=== PATIENT | male | born 1995 | race Caucasian/White ===

== ENCOUNTER 2020-05-31 13:29 | Emergency (ER) | payer SELFPAY ==
--- NOTE | 2020-05-31 14:28 | EDM.PDOC ---
ED HPI GENERAL MEDICAL PROBLEM - General Chief Complaint: Chest Pain Stated Complaint: CHEST PAIN Time Seen by Provider: 05/31/20 14:27 Source of Information: Reports: Patient History Limitations: Reports: No Limitations - History of Present Illness INITIAL COMMENTS - FREE TEXT/NARRATIVE: 24-year-old male presents to the ED for evaluation of left precordial chest discomfort that he experienced in the workplace about 1 and 1/2 weeks ago. It was so bad that he could not continue to work and was sent home. The following day it was gone and he returned to the workplace and he has had no chest pain since. He has had some intermittent epigastric lower retrosternal chest discomfort as well. But nothing on exertion and nothing sustained. His second complaint is pain when he looks down with a palpable nodule in his left upper angle of his mandible. This is persisted for the last 2 months. He does not remember having any facial hair infection or obvious insect bite or tick bite that would have precipitated reactive lymphadenitis. Has had no fever chills and otherwise is feeling well. Good appetite normal bowel function and has been working normally. Onset: Other (Has had a pain in the left neck at the angle of his mandible off and on for the last 2 months. He particular notices when he looks down for any length of time. Left precordial chest pain left epigastric lower retrosternal chest discomfort occurred only 1 day about a week and a half ago while he was in the workplace and has never returned.) Duration: Day(s):, Improving Location: Reports: Chest (Chest discomfort was left precordial and left epigastric retrosternal occurred about a week and a half ago in the workplace when he was working outside very hot. He suddenly became very lethargic and no longer able to lift push pull or work. He was sent home from the workplace because of this. After he got home the pain dissipated and he never sought medical care in this regard. It has not returned since that time. Gives a history of father developing cardiac problems at age 24 and a grandfather at age 50 having significant coronary artery disease. He does not remember if his grandfather was a smoker or not.), Other (Has a palpable nodular feeling in the left upper neck under the angle of his mandible on the left side. He reports it is unchanged in size over the last 2 months but bothers him at times when he looks downwards. Or fully flexes his neck.) Quality: Reports: Ache Severity: Moderate Improves with: Reports: Other (Pain is no longer present.) Worsens with: Reports: Movement (He can make the left side of his neck hurt a bit or become aware of discomfort at the angle of his mandible when he fully flexes his neck.) Context: Denies: Activity, Exercise, Lifting, Sick Contact, Trauma, Other Associated Symptoms: Reports: Chest Pain (Chest pain initially 1-1/2 weeks ago left precordium but lasted only a few hours.). Denies: No Other Symptoms, Confusion, Cough, cough w sputum, Diaphoresis, Fever/Chills, Headaches, Loss of Appetite, Malaise, Nausea/Vomiting, Seizure, Shortness of Breath, Syncope Treatments BARREL [place]: Reports: Other (see below) (None.) Left Chest Pain Score (Numeric/FACES): 1 - Related Data Allergies Allergy/AdvReac Type Severity Reaction Status Date / Time No Known Allergies Allergy Verified 05/31/20 13:52 Past Medical History - Past Health History Medical/Surgical History: Denies Medical/Surgical History Social & Family History - Tobacco Use Smoking Status *Q: Never Smoker Second Hand Smoke Exposure: No - Caffeine Use Caffeine Use: Reports: Energy Drinks - Recreational Drug Use Recreational Drug Use: No - Living Situation & Occupation Living situation: Reports: Single Occupation: Employed [employer] [facility] [employer] [facility] - Review of Systems Review Of Systems: See Below Constitutional: Denies: Fever, Chills, Malaise, Weakness, Fatigue, Decreased Appetite, Weight Loss HEENT: Reports: Other (Palpable nodule at the angle of his left mandible aggravated by flexing his neck fully on with chin on chest position.) Respiratory: Reports: No Symptoms. Denies: Shortness of Breath, Wheezing, Pleuritic Chest Pain, Cough, Sputum, Hemoptysis, Other Cardiovascular: Reports: Other (NC and left precordial chest pain 1-1/2 weeks ago. Occurred in the workplace when it was extremely hot and he admits that he was overexerting himself.). Denies: No Symptoms, Chest Pain, Blood Pressure Problem, Dyspnea on Exertion, Edema, Lightheadedness, Orthopnea, Palpitations, PND, Syncope Endocrine: Reports: No Symptoms GI/Abdominal: Reports: No Symptoms : Reports: No Symptoms Musculoskeletal: Reports: No Symptoms Skin: Reports: No Symptoms Neurological: Reports: No Symptoms Psychiatric: Reports: No Symptoms Hematologic/Lymphatic: Reports: No Symptoms Immunologic: Reports: No Symptoms ED EXAM, GENERAL - Physical Exam Exam: See Below Exam Limited By: No Limitations General Appearance: Alert, WD/WN, No Apparent Distress, Other (Temperature is 36.2. Heart rate is 59 and sinus respiratory is 18 with O2 sats of 98% room air BP 1 3281.) Eye Exam: Bilateral Eye: Normal Inspection, PERRL Throat/Mouth: Normal Inspection, Normal Lips, Normal Oropharynx Head: Atraumatic, Normocephalic. No: Facial Swelling, Facial Tenderness Neck: Normal Inspection, Supple, Non-Tender, Full Range of Motion, Lymphadenopathy (L) (Patient has a solitary lymph node at the angle of his mandible on the anterior aspect of the sternocleidal mastoid muscle that is less than a centimeter in size mobile and rubbery in consistency. It is perhaps very mildly tender suggesting mild reactive lymphadenopathy.). No: Lymphadenopathy (R) Respiratory/Chest: No Respiratory Distress, Lungs Clear, Normal Breath Sounds, No Accessory Muscle Use, Chest Non-Tender, Other Cardiovascular: Normal Peripheral Pulses (Chest wall pain on examination), Regular Rate, Rhythm, No Edema, No Gallop, No Murmur, No Rub Peripheral Pulses: 3+: Carotid (L), Carotid (R), Posterior Tibial (L), Posterior Tibial (R), Dorsalis Pedis (L), Dorsalis Pedis (R) GI/Abdominal: Normal Bowel Sounds, Soft, Non-Tender, No Organomegaly, No Abnormal Bruit, No Mass, Pelvis Stable Back Exam: Normal Inspection, Full Range of Motion, Other. No: CVA Tenderness (L), CVA Tenderness (R) Extremities: Normal Inspection (Rib head subluxation on exam), Normal Range of Motion, Non-Tender, No Pedal Edema Neurological: Alert, Oriented, CN II-XII Intact, Normal Cognition Psychiatric: Normal Affect, Normal Mood Skin Exam: Warm, Dry, Intact, Normal Color, No Rash EKG INTERPRETATION EKG Date: 05/31/20 Time: 14:50 Rhythm: NSR Rate (Beats/Min): 62 [place]: Normal P-Wave: Present QRS: Other (Early R wave transition normal for his age.) ST-T: Other (Diffuse early repolarization abnormality skewing the ST segment upwards in multiple leads and especially in leads II, III and aVF.) EKG Interpretation Comments: Abnormal ECG Course - Vital Signs Last Recorded V/S: Last Vital Signs Temp 36.2 C 05/31/20 13:49 Pulse 59 L 05/31/20 13:49 Resp 18 05/31/20 13:49 BP 132/81 05/31/20 13:49 Pulse Ox 98 05/31/20 13:49 - Radiology Interpretation Free Text/Narrative:: 24-year-old male presents to the ED for evaluation of a palpable nodule at the angle of his left mandible that is been present for about 2 months. Reports it bothers him the most when he is fully flexing his neck i.e. chin on chest position. Otherwise he is usually not aware of it. He states has not changed in size over the last 2 months. Cause is unclear but appears to be a reactive lymphadenopathy. On examination there is a palpable lymph node right at the angle of the mandible anterior to the sternocleidomastoid muscle with no other adenopathy present in the anterior posterior chain. There is no anterior or posterior ear lymphadenopathy and no occipital adenopathy. Second complaint was left precordial chest pain left epigastric chest discomfort that occurred in the workplace about 10 days ago that restricted his ability to continue work. He was forced to quit work and come home. He states it lasted for about 3 to 4 hours but then dissipated and has never come back. It was very hot outside at that time and he was exerting himself much more heavily than usual. To suggest possible dehydration muscle cramping pain as a cause. Examination of the chest wall reveals no abnormalities on today's exam. Lungs are clear heart is sinus and no abnormalities appreciated. Is unclear exactly why the youngster came to the ED at this point time several deep days or weeks after development of problems. Plan 1 view chest x-ray and ECG to be done. - Re-Assessments/Exams Free Text/Narrative Re-Assessment/Exam: 05/31/20 15:31 chest x-ray done portably is within normal limits. Patient is hyperinflated lung garrison due to his young age. Lungs parenchyma is clear. Cardiac silhouette is normal. ECG done reveals sinus rhythm at 63/min. There is early R wave transition which is normal for his age. There is diffuse early repolarization abnormality skewing the ST segments slightly upwards. This is particularly notable in leads II, III and aVF. He has no persistent chest pain to suggest pericarditis. Patient had chest pain that lasted only 6 hours 10 days ago and has no persistent chest pain dyspnea or pleuritic mid chest pain to suggest pericarditis. 05/31/20 15:33 patient will be discharged to home at this point time. Advised that at some point time in the next 3 to 4 months he should have a complete checkup with his primary care physician including serum cholesterol because of the strong family history of coronary disease in his family. He reports he used to smoke cigarettes but quit and now he has quit chewing tobacco as well. This will substantially reduce his risk. Departure - Departure Time of Disposition: 15:33 Disposition: Home, Self-Care 01 Reason for Transfer *Q: Other Condition: Fair (Noncardiac chest pain) Clinical Impression: Reactive cervical lymphadenopathy Instructions: Lymphadenopathy Referrals: PCP,None [Primary Care Provider] - Forms: ED Department Discharge Additional Instructions: Evaluation in the emergency room today in regards to 2 problems. You have appreciated an enlarged lymph node at the angle of your left mandible that is problematic sometimes when you fully flexure head with chin on chest position. Apparently it has been present for 2 months. On examination there is a lymph node at the angle of the mandible along the anterior chain of the s ternocleidomastoid muscle. It is smaller than a centimeter and is mobile and therefore is of no consequence. It likely represents a reaction to an infection either in your anthony or sometimes in the scalp area and remains swollen and tender for a lengthy period of time sometimes many months. The amezcua is that it does not change in shape or size over the ensuing weeks. It will eventually become nontender and likely settle down although it may stay slightly enlarged. Second problem was transient left precordial chest pain and epigastric discomfort while in the workplace about a week and a half ago that forced you to quit work due to severe weakness and inability to perform the activities of your job. This lasted approximately 6 hours or so and then got better. It is not returned. I suspect it was due to significant dehydration and perhaps overuse of the muscles in your chest and arms. ECG done today is within normal limits showing no abnormalities. Chest x-ray is also completely normal. At this time no restrictions continue all activities and diet as per your normal. Sepsis Event Note (ED) - Evaluation Sepsis Screening Result: No Definite Risk - Focused Exam Vital Signs: Vital Signs Temp Pulse Resp BP Pulse Ox 05/31/20 13:49 36.2 C 59 L 18 132/81 98
--- NOTE | 2020-05-31 15:51 | CR ---
Chest: Portable view of the chest was obtained. Comparison: No prior chest x-ray. Heart size and mediastinum are normal. Lungs are clear with no acute parenchymal change. Bony structures are unremarkable. Impression: 1. Nothing acute is seen on portable chest x-ray. Diagnostic code #1 Study was dictated in MDT
== END 2020-05-31 15:46 | disposition home or self-care (01) ==
LOC: JD.ED 13:29
DX: M54.12 Radiculopathy, cervical region (principal)
CPT/HCPCS: 71045; 71045-26; 93005; 99285-25

== ENCOUNTER 2023-06-04 19:02 | Emergency (ER) | payer SELFPAY ==
[2023-06-04] MEDS ORDERED: Pantoprazole 40 MG Tab.CR PO ONE (19:31)
[2023-06-04 19:39] LABS: BASOPHILS PERCENT AUTO 0.3 % (0.0-1.0); EOSINOPHILS ABSOLUTE AUTO 0.1 K/mm3 (0.0-0.4); HEMATOCRIT 39.5 % (42.0-52.0); HEMOGLOBIN 14.3 gm/dl (14.0-18.0); IMMATURE GRAN ABSOLUTE AUTO 0.04 K/mm3 (0.00-0.05); IMMATURE GRAN PERCENT AUTO 0.4 % (0.0-0.4); LYMPHOCYTES ABSOLUTE AUTO 3.6 K/mm3 (1.0-4.8); MEAN CORPUSCULAR HEMOGLOBIN 30.3 pg (28.0-32.0); MEAN CORPUSCULAR HGB CONC 36.2 g/dl (32.0-36.0); MEAN CORPUSCULAR VOLUME 83.7 fl (83.0-99.0); MEAN PLATELET VOLUME 9.8 fl (9.4-12.4); MONOCYTES ABSOLUTE AUTO 0.6 K/mm3 (0.0-0.8); MONOCYTES PERCENT AUTO 6.7 % (0.0-8.0); NEUTROPHILS ABSOLUTE AUTO 4.6 K/mm3 (1.8-7.7); NEUTROPHILS PERCENT AUTO 51.6 % (41.0-71.0); PLATELET COUNT,PLT 182 K/mm3 (150-400); RED BLOOD CELL COUNT 4.72 M/mm3 (4.52-5.90); WHITE BLOOD CELL COUNT,WBC 8.94 K/mm3 (3.9-11.3)
[2023-06-04 20:03] LABS: A/G RATIO 1.6 (1-2); ALBUMIN 4.2 g/dl (3.4-5.0); ANION GAP 11.6 (5-15); BILIRUBIN TOTAL 0.6 mg/dL (0.2-1.0); BUN/CREATININE RATIO 22.2 (14-18); CALCIUM 8.9 mg/dL (8.5-10.1); CREATININE 0.9 mg/dL (0.7-1.3); EST CRCL DRUG DOSING (CG) 127.13 mL/min; POTASSIUM,K 3.6 mEq/L (3.5-5.1); PROTEIN TOTAL,TP 6.9 g/dl (6.4-8.2)
== END 2023-06-04 21:19 | disposition home or self-care (01) ==
LOC: JD.ED 19:02
DX: K29.00 Acute gastritis without bleeding (principal)
CPT/HCPCS: 36415; 71046; 80053; 83690; 84484; 85025; 85379; 93005; 99285; A9270